=== PATIENT | female | born 1960 | race Two or more races ===

== ENCOUNTER 2021-02-21 16:10 | Emergency (ER) | payer MEDICAID ==
[~2021-02-21] VITALS: Ht 157.5 cm; Wt 76.2 kg
[2021-02-21 16:20] VITALS: BP 154/101
[2021-02-21] MEDS ORDERED: DIAZ5TAB PO (16:36)
== END 2021-02-21 16:58 | disposition home or self-care (01) ==
LOC: ER 16:16
DX: M26.69 Other specified disorders of temporomandibular joint (principal); F32.9 Major depressive disorder, single episode, unspecified; Z79.899 Other long term (current) drug therapy

== ENCOUNTER 2024-02-21 11:51 | Emergency (ER) | payer MEDICAID, OTHER ==
[~2024-02-21] VITALS: Ht 154.9 cm; Wt 63.5 kg
[~2024-02-21 11:51] MED LIST: DIAZ5TAB PO
[2024-02-21 12:01] VITALS: BP 142/94; TEMP 98
[2024-02-21] MEDS: KETOROLAC TROMETHAMINE INJ 60 MG/2 ML VIAL IM ONE (12:30)
[2024-02-21] MEDS ORDERED: KETOROLAC TROMETHAMINE INJ 30 MG/ML VIAL ONE (12:40)
[2024-02-21] MEDS ORDERED: IBUP-1957 PO (12:54)
[2024-02-21 13:30] VITALS: O2SAT 96
== END 2024-02-21 13:31 | disposition home or self-care (01) ==
LOC: ER 11:56
DX: M25.562 Pain in left knee (principal); M79.89 Other specified soft tissue disorders; F32.A Depression, unspecified
CPT/HCPCS: 99283; 96372; 73564; J1885

== ENCOUNTER 2025-06-17 11:09 | Emergency (ER) | payer MEDICARE, OTHER ==
[~2025-06-17] VITALS: Ht 157.5 cm; Wt 77.1 kg
[~2025-06-17 11:09] MED LIST changes: +IBUP-1957 PO
[2025-06-17] MEDS ORDERED: CHLO473M5 PO (12:59)
[2025-06-17 13:21] VITALS: BP 158/75; TEMP 98.1; O2SAT 99
== END 2025-06-17 13:21 | disposition home or self-care (01) ==
LOC: ER 11:19
DX: S01.512A Laceration without foreign body of oral cavity, initial encounter (principal); I51.9 Heart disease, unspecified; F41.9 Anxiety disorder, unspecified; E78.5 Hyperlipidemia, unspecified; F32.A Depression, unspecified; X58.XXXA Exposure to other specified factors, initial encounter; Y93.89 Activity, other specified; Y92.89 Other specified places as the place of occurrence of the external cause; Y99.9 Unspecified external cause status